=== PATIENT | female | born 1995 | race Caucasian/White ===

== ENCOUNTER 2020-02-10 15:44 | Emergency (ER) | payer BC ==
[2020-02-10 17:00] LABS: BLOOD UREA NITROGEN,BUN 6 mg/dL (7.0-18.0); CARBON DIOXIDE,CO2 30.2 mmol/L (21.0-32.0); CHLORIDE,CL 105 mmol/L (98-107); GLUCOSE RANDOM 96 mg/dL (74-106); POTASSIUM,K 3.9 mmol/L (3.5-5.1); SODIUM,NA 142 mmol/L (136-145)
--- NOTE | 2020-02-10 18:05 | CR ---
INDICATION: Hemoptysis TECHNIQUE: Chest 2 views. COMPARISON: None FINDINGS: Cardiovascular and mediastinum: Heart size and vasculature are normal in caliber and appearance. Mediastinum is within normal limits. Lungs and pleural spaces: Lungs are clear. No sign of infiltrate or mass. No sign of pleural effusion. No pneumothorax. Bones and soft tissues: No significant findings. IMPRESSION: Unremarkable chest. Dictated by Abhilash Escalera MD @ 02/10/2020 6:03:29 PM Dictated by: Abhilash Escalera MD @ 02/10/2020 18:03:53 (Electronically Signed)
--- NOTE | 2020-02-10 18:07 | EDM.PDOC ---
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 Patient is unsure if the epistaxis occurred prior to or follow the hemoptysis. Patient denies history of DVT, PE, recent illness, malaise, sore throat, rhinorrhea, or further symptoms. M/S/F/SocHx notable for: please see HPI; remainder reviewed with patient and in chart. ROS: Negative constitutional, eye, cardiovascular, pulmonary, GI, , MSK, skin , neurologic, psychiatric, endocrine unless noted in the HPI. Exam HR 90, RR 16, BP 141/113, T 36.1C, SaO2 98% on room air. Gen: Pleasant, non-toxic appearing, resting comfortably. HEENT: NC, AT, PEERL, EOMI. Oropharynx visually normal, no blood in the posterior oropharynx, nares without epistaxis or visible blood. Resp: Clear to auscultation bilaterally, normal work of breathing, no accessory muscle usage. Card: Regular rate and rhythm with no murmurs, rubs, or gallops, extremities warm and well perfused. GI: Non-tender to palpation throughout all quadrants, no focal tenderness at McBurney's point, negative Bills's sign, non-distended, no rebound or guarding. : No suprapubic tenderness to palpation. MSK: No visible deformities, strength and tone without visually appreciable deficit. Skin: Normal color with no visible lesions. Neuro: alert and oriented 3, no facial asymmetry, vision and hearing WNL. Psych: Mood and affect appropriate. Labs / Imaging: WBC 10.6, Hb 12.9, d-dimer 0.35, sodium 142, potassium 3.9. CXR: No acute cardiopulmonary disease process. No focal infiltrate, cardiomegaly , rib fractures, or mediastinal widening, lung markings extend to the periphery bilaterally and there are no deep sulci. Radiologist's read pending. MDM Previous chart, nursing note, labs, imaging, and vitals reviewed. 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 DDx: pneumonia, PE, Prabha-Staples tears, Boorehaves syndrome, epistaxis, anemia , diffuse alveolar hemorrhage 2/2 DIC, lupus, or coagulopathy. Evaluation: patient well-appearing without discernible abnormalities on CBC, BMP , d-dimer, and chest x-ray. No recurrent symptoms. Suspect mild irritation secondary to coughing with hemoptysis either due to a brief, self limited episode of epistaxis, or due to bronchial irritation from coughing. Chest x-ray and exam without evidence of pneumonia, given the low pretest probability and a negative d-dimer consider PE to be effectively excluded/appropriately risk stratified. No features suggestive of Prabha-Staples tears, Boorehaves syndrome , or diffuse alveolar hemorrhage. Patient discharged with PCP follow-up as needed. Impression: practices. (please reference below for remainder of encounter information) Alejandro' (Signs & Sx of DVT - 0, PE is #1 or equally likelihood - 0, HR > 100 - 0 , immobilization of >=3 days or surgery in last 28 days - 0, prior DVT or PE - 0 , hemoptysis - 1, malignancy w/ tx in last 6 mo or palliative - 0). throat Pain Score (Numeric/FACES): 2 - Related Data Allergies Allergy/AdvReac Type Severity Reaction Status Date / Time procaine [From Novocain] Allergy Anaphylactic Verified 02/10/20 16:02 Shock Home Meds: Home Meds . [No Known Home Meds] 02/10/20 [History] Past Medical History Other Gastrointestinal History: MUNSON Psychiatric History: Reports: Anxiety, Depression - Infectious Disease History Infectious Disease History: Reports: Chicken Pox - Past Surgical History HEENT Surgical History: Reports: Eye Surgery Other GI Surgeries/Procedures: liver bx x2 Social & Family History - Family History Family Medical History: Noncontributory - Tobacco Use Smoking Status *Q: Never Smoker - Recreational Drug Use Recreational Drug Use: No ED ROS GENERAL - Review of Systems Review Of Systems: See Below ED EXAM, GENERAL - Physical Exam Exam: See Below Course - Vital Signs Last Recorded V/S: Last Vital Signs Temp 36.1 C 02/10/20 15:59 Pulse 90 02/10/20 15:59 Resp 16 02/10/20 15:59 BP 141/113 H 02/10/20 15:59 Pulse Ox 98 02/10/20 15:59 - Orders/Labs/Meds Labs: Laboratory Tests 02/10/20 02/10/20 02/10/20 Range/Units 16:36 16:36 16:36 WBC 10.56 (4.0-11.0) K/uL RBC 5.26 (4.30-5.90) M/uL Hgb 12.9 (12.0-16.0) g/dL Hct 41.4 (36.0-46.0) % MCV 78.7 L (80.0-98.0) fL MCH 24.5 L (27.0-32.0) pg MCHC 31.2 (31.0-37.0) g/dL RDW Std Deviation 42.9 (28.0-62.0) fl RDW Coeff of Yulia 15 (11.0-15.0) % Plt Count 424 H (150-400) K/uL MPV 10.00 (7.40-12.00) fL Neut % (Auto) 58.0 (48.0-80.0) % Lymph % (Auto) 34.2 (16.0-40.0) % Iron % (Auto) 6.1 (0.0-15.0) % Eos % (Auto) 1.5 (0.0-7.0) % Baso % (Auto) 0.2 (0.0-1.5) % Neut # (Auto) 6.1 H (1.4-5.7) K/uL Lymph # (Auto) 3.6 H (0.6-2.4) K/uL Iron # (Auto) 0.6 (0.0-0.8) K/uL Eos # (Auto) 0.2 (0.0-0.7) K/uL Baso # (Auto) 0.0 (0.0-0.1) K/uL Nucleated RBC % 0.0 /100WBC Nucleated RBCs # 0 K/uL D-Dimer, Quantitative 0.35 (0.0-0.50) mg/L FEU Sodium 142 (136-145) mmol/L Potassium 3.9 (3.5-5.1) mmol/L Chloride 105 (98-107) mmol/L Carbon Dioxide 30.2 (21.0-32.0) mmol/L BUN 6 L (7.0-18.0) mg/dL Creatinine 0.7 (0.6-1.0) mg/dL Est Cr Clr Drug Dosing 122.85 mL/min Estimated GFR (MDRD) > 60.0 ml/min Glucose 96 (74-106) mg/dL Calcium 9.0 (8.5-10.1) mg/dL Departure - Departure Time of Disposition: 18:06 Disposition: Home, Self-Care 01 Clinical Impression: Hemoptysis - Discharge Information Referrals: PCP,Not In Area [Primary Care Provider] - Additional Instructions: You were in seen in the [facility] Emergency Department for evaluation of coughing up blood. At time of your evaluation you are suspected to have been coughing up blood due to irritation in your lungs from a coughing episode. This is generally a self limited process that will resolve along with your cough. Should you have any recurrent symptoms or are otherwise concerned about your health please return immediately to the emergency department. Please read and follow all of the instructions below. Please follow up with your primary care physician within 48 hours repeat evaluation of your asymptomatic hypertension. When calling for follow-up care, please make the office aware that this follow-up is from your recent emergency room visit. If for any reason you are refused follow-up, please contact the [facility] Emergency Department at [phone] and asked to speak to the emergency department charge nurse. Your care today was limited to identifying and treating emergent medical problems only. Many people have subtle differences in their test results that require follow up with their outpatient physician(s) to correctly determine if this represents a normal variation or concerning abnormality with respect to your specific health. The care given to you today was limited to identifying and treating emergent medical problems - you need to request a copy of all of your medical records from today's visit and follow up with your outpatient physician(s) to review both today's visit and your overall health. If you have any new symptoms or if you are at all concerned about your health please return immediately to the emergency department. Prescriptions: If you are uninsured or have financial difficulties with filling your prescription(s), you may consider using a free pharmacy discount service such as [employer] ([employer]) or [employer] ([employer]). These services allow you to search for a medication on your phone (or computer) and obtain a coupon that usually has a significant discount from the list doll at a pharmacy. Your physician as well as [facility] does not have a financial relationship with either of these services. You may also wish to speak with your physician to determine if lower cost prescriptions are possible. Obtaining primary care: 1. [facility] provides pediatrics (children), family medicine (children, adults, and some obstetrical care), and internal medicine (adults). Further specialty care is also available. Same day appointments are available. They may be contacted at [phone] and are open Tuesday through Tuesday 8 AM to 5 PM. The [facility] are located at [facility], [address] [place] [address]. 2. [facility] offers family medicine, internal medicine, womens health, and further specialty care. [facility] may be contacted at [phone]. [facility] is located at [address] [place], [address]. 3. If you have health insurance, please also contact your insurer for a list of accepting providers under your policy, you may contact these providers for further health care. Occupational health: Work related injuries may consider following up with [facility], . Occupational health services are located at [address] [place] [address], [place] [address] and are open Tuesday through Tuesday from 7: 30 am to 5:00 pm. Obstetrical and Gynecological Care: [facility], , Tuesday through Tuesday 8 AM to 5 PM. [address], [place] [address]. Eyecare: If you have an eye injury you should follow up with your adjunct spanish instructor or with [facility], at [phone] or [phone] , they are located at [address] [place] [address]. [facility] DDS. [address] [place], [place]. Ph. [phone] Mainor Benjamin DDS MS. [address] [facility] [address], [place], [place]. Ph. Adolfo Painter DDS. 10 11/[address] [place] [address]. Ph. [phone] Arron Garcia DDS. [address] [facility] 4 [place], [place]. Ph. [phone] Evangelist Lam DDS PC. [address] [facility] [address] [facility] [address] [place], [place]. Ph. [phone] Rehan Calderon DDS. [address] [place] [address]. Ph. [phone] [facility]. [address] [place], [place]. Ph. [phone] [facility]. [address], [place], [place]. Ph. [phone] [facility] [address] [place] [phone]. Ph. [facility]. [address] [place] [address] 1. [place], [place]. Ph. [facility]. [address] [place] Ph. [phone] High Blood Pressure (Hypertension) When you were in the emergency department you had an abnormally high blood pressure. High blood pressure can be without symptoms. However high blood pressure can lead to many medical problems including kidney disease, strokes, and heart attacks. Your blood pressure may have been elevated due to pain or the stress of being in the emergency department, however half of people with an elevated blood pressure in the emergency department have mcfp problems with high blood pressure. Please see your primary care physician in 2-3 days for a repeat check of your blood pressure. This may help prevent many health serious problems in the future. Please return to the emergency department if you develop any of the following: chest pain, shortness of breath, new or severe headache, changes in vision or hearing, weakness, or if you are otherwise concerned about your health. Sepsis Event Note - Evaluation Sepsis Screening Result: No Definite Risk - Focused Exam Vital Signs: Vital Signs Temp Pulse Resp BP Pulse Ox 02/10/20 15:59 36.1 C 90 16 141/113 H 98 Date Exam was Performed: 02/10/20 Time Exam was Performed: 18:06
== END 2020-02-10 18:13 | disposition home or self-care (01) ==
LOC: MW.ED 15:44
DX: R04.2 Hemoptysis (principal); E66.01 Morbid (severe) obesity due to excess calories; Z68.43 Body mass index [BMI] 50.0-59.9, adult
CPT/HCPCS: 36415; 71046; 71046-26; 80048; 85025; 85379; 99283; 99283-25